=== PATIENT | male | born 1935 ===

== ENCOUNTER 2018-07-26 10:42 | Emergency (ER) | payer OTHER ==
[~2018-07-26] VITALS: Ht 180.3 cm; Wt 90.7 kg
[2018-07-26] MEDS ORDERED: NORVASC2.5 M1 PO (11:33)
[2018-07-26] MEDS ORDERED: COZAAR100 MG PO (11:33)
[2018-07-26] MEDS ORDERED: SYNTHROID137 MCG PO (11:33)
== END 2018-07-26 13:56 | disposition home or self-care (01) ==
LOC: ER 10:42
DX: S81.811A Laceration without foreign body, right lower leg, initial encounter (principal); W55.01XA Bitten by cat, initial encounter; Y93.89 Activity, other specified; Y92.89 Other specified places as the place of occurrence of the external cause; Y99.8 Other external cause status